=== PATIENT | female | born 1950 | race Two or more races ===

== ENCOUNTER 2022-07-29 16:21 | Emergency (ER) | payer OTHER, MEDICAID ==
[2022-07-29 16:22] VITALS: BP 148/70
== END 2022-07-29 19:52 | disposition home or self-care (01) ==
LOC: ER 16:21
DX: K08.89 Other specified disorders of teeth and supporting structures (principal); Z53.21 Procedure and treatment not carried out due to patient leaving prior to being seen by health care provider